=== PATIENT | male | born 1975 | race Caucasian/White ===

== ENCOUNTER 2016-07-05 21:34 | Emergency (ER) | payer OTHER, MEDICAID ==
[~2016-07-05] VITALS: Ht 188 cm; Wt 100.0 kg
[2016-07-05 21:36] VITALS: BP 128/90; TEMP 98.2
[2016-07-05 23:00] LABS: INFLUENZA B NEGATIVE
[2016-07-05 23:51] VITALS: PULSE 98
== END 2016-07-05 23:50 | disposition home or self-care (01) ==
LOC: COL.ER 21:34
PROVIDERS: Nurse Practitioner
DX: J11.1 Influenza due to unidentified influenza virus with other respiratory manifestations (principal); R10.84 Generalized abdominal pain
CPT/HCPCS: J1885; J2550; J7030

== ENCOUNTER 2017-03-20 14:28 | Emergency (ER) | payer OTHER, MEDICAID ==
[~2017-03-20] VITALS: Ht 188 cm; Wt 90.9 kg
[2017-03-20 14:51] VITALS: BP 135/85; PULSE 81; TEMP 98.5
[2017-03-20] MEDS ORDERED: AMOXICILLIN 50500 MG PO (15:52)
== END 2017-03-20 15:57 | disposition home or self-care (01) ==
LOC: COL.ER 14:28
DX: J02.0 Streptococcal pharyngitis (principal); Z90.89 Acquired absence of other organs